=== PATIENT | female | born 1975 | race Asian ===

== ENCOUNTER 2016-10-14 02:19 | Emergency (ER) | payer OTHER ==
[2016-10-14 03:33] LABS: Hematocrit 38 % (35-47); Hemoglobin 12.8 g/dl (12.0-16.0); Mean Corpuscular HGB Conc 33 g/dl (31-36); Mean Corpuscular Hemoglobin 29 pg (27-31); Mean Corpuscular Volume 87 fL (80-97); Mean Platelet Volume 9 um3 (7.4-10.4); Red Blood Count 4.44 10^6/ul (4.0-5.4); Red Cell Distribution Width 13 % (10.5-15); White Blood Count 7.2 10^3/ul (3.5-10.8)
[2016-10-14] MEDS ORDERED: Ketorolac INJ* 30 MG/ML 1 ML VIAL IV PUSH ONE (04:36)
[2016-10-14] MEDS ORDERED: NS 0.9% 1000 ML* 1,000 ML IV SCH (04:45)
[2016-10-14 07:20] VITALS: BP 97/62
--- NOTE | 2016-10-14 08:11 | ED ---
Ruperto Mar Billy scribed for Linwood Francois MD on 10/14/16 at 0433 . GI/ HPI - HPI Summary HPI Summary: Patient is a 41 year-old female coming to [facility] for evaluation of abdominal pain and vaginal bleeding. Patient went to bed last night and woke up at midnight with heavy vaginal bleeding and intermittent suprapubic cramping. Pain severity 5/10. She has bled through 1 pad since midnight. Patient had a miscarriage 2 days ago; she was 10 weeks . She is scheduled to have D&C in 3 days. - History of Current Complaint Chief Complaint: EDVaginalBleeding Time Seen by Provider: 10/14/16 03:14 Stated Complaint: VAG BLEEDING Hx Obtained From: Patient Onset/Duration: Started Hours Ago Timing: Intermittent Severity: Moderate Current Severity: Moderate Number of Pads per Day: 1 - 1 pad since midnight Pain Intensity: 5 Location of Pain: Suprapubic Additional Signs & Symptoms: Positive: Vaginal Bleeding Aggravating Factor(s): Nothing Alleviating Factor(s): Nothing - Allergy/Home Medications Allergies/Adverse Reactions: Allergies Allergy/AdvReac Type Severity Reaction Status Date / Time No Known Allergies Allergy Verified 10/14/16 02:24 PMH/Surg Hx/FS Hx/Imm Hx Endocrine/Hematology History: Denies: Hx Diabetes Cardiovascular History: Denies: Hx Hypertension Sensory History: Reports: Hx Contacts or Glasses - contacts, will wear glasses day of surgery Denies: Hx Hearing Aid Opthamlomology History: Reports: Hx Contacts or Glasses - contacts, will wear glasses day of surgery - Surgical History Surgery Procedure, Year, and Place: OVARIAN CYST REMOVAL Hx Anesthesia Reactions: No Infectious Disease History: No Infectious Disease History: Denies: Traveled Outside the [place] in Last 30 Days - Family History Family History: No family history of malignant hyperthermia or anesthesia reaction. - Social History Alcohol Use: Occasionally Substance Use Type: Reports: None Smoking Status (MU): Never Smoked Tobacco Have You Smoked in the Last Year: No Review of Systems Negative: Fever, Chills Negative: Erythema Negative: Sore Throat Negative: Chest Pain Negative: Shortness Of Breath, Cough Positive: Abdominal Pain. Negative: Vomiting, Nausea Positive: other - bleeding Negative: Myalgia, Edema Negative: Rash All Other Systems Reviewed And Are Negative: Yes Physical Exam - Summary Physical Exam Summary: Constitutional: Well-developed, Well-nourished, Alert. (-) Distressed Skin: Warm, Dry HENT: Normocephalic; Atraumatic Eyes: Conjunctiva normal Neck: Musculoskeletal ROM normal neck. (-) JVD, (-) Stridor, (-) Tracheal deviation Cardio: Rhythm regular, rate normal, Heart sounds normal; Intact distal pulses; The pedal pulses are 2+ and symmetric. Radial pulses are 2+ and symmetric. (-) Murmur Pulmonary/Chest wall: Effort normal. (-) Respiratory distress, (-) Wheezes, (-) Rales Abd: Soft, Mild suprapubic tendernes. (-) Distension, (-) Guarding, (-) Rebound. There is a small amount of blood visualized on the second pad. Musculoskeletal: (-) Edema Lymph: (-) Cervical adenopathy Neuro: Alert, Oriented x3 Psych: Mood and affect Normal Triage Information Reviewed: Yes Vital Signs On Initial Exam: Initial Vitals Temp Pulse Resp BP Pulse Ox 97.7 F 77 15 110/70 100 10/14/16 02:21 10/14/16 02:21 10/14/16 02:21 10/14/16 02:21 10/14/16 02:21 Vital Signs Reviewed: Yes Diagnostics - Vital Signs Vital Signs Temp Pulse Resp BP Pulse Ox 10/14/16 04:00 56 103/71 99 10/14/16 03:30 60 108/62 99 10/14/16 03:06 57 100 10/14/16 03:04 99/63 10/14/16 02:23 97.7 F 73 15 110/70 100 10/14/16 02:21 97.7 F 77 15 110/70 100 - Laboratory Lab Results: Lab Results 10/14/16 10/14/16 Range/Units 03:05 03:05 WBC 7.2 (3.5-10.8) 10^3/ul RBC 4.44 (4.0-5.4) 10^6/ul Hgb 12.8 (12.0-16.0) g/dl Hct 38 (35-47) % MCV 87 (80-97) fL MCH 29 (27-31) pg MCHC 33 (31-36) g/dl RDW 13 (10.5-15) % Plt Count 148 L (150-450) 10^3/ul MPV 9 (7.4-10.4) um3 Blood Type B Positive Antibody Screen Negative Result Diagrams: 10/14/16 03:05 Lab Statement: Any lab studies that have been ordered have been reviewed, and results considered in the medical decision making process. Re-Evaluation - Re-Evaluation First Eval Re-Evaluation Time: 08:10 Change: Improved - FEELS BETTER, HAS OB APPT AT 9 AM TODAY GIGU Course/Dx - Course Assessment/Plan: 41 y/o female to the ED for evaluation of vaginal bleeding. Hgb and Hct WNL. There was minimal bleeding and passage of tissue in the ED. Patient was given Toradol and IV fluids in the ED. She will be discharged home to follow up with PCP. - Diagnoses Provider Diagnoses: Miscarriage - Physician Notifications Discussed Care Of Patient With: Dr. Menjivar ([facility]) @ [phone]: wants the patient to call her OB in the morning after the office opens. Discharge - Discharge Plan Condition: Stable Disposition: HOME Patient Education Materials: Miscarriage (ED) Referrals: Helena Randhawa MD [Primary Care Provider] - (GO TO YOUR OBGYN APPT TODAY AT 9 AM) Additional Instructions: FOLLOW UP WITH [facility] ON WEDNESDAY. The documentation as recorded by the Ruperto carlson Billy accurately reflects the service I personally performed and the decisions made by me, Linwood Francois MD.
[2016-10-14] MEDS ORDERED: Ibuprofen TAB* 400 MG PO ONE (08:12)
== END 2016-10-14 08:23 | disposition home or self-care (01) ==
LOC: ED 02:19
DX: O03.9 Complete or unspecified spontaneous abortion without complication (principal); R10.9 Unspecified abdominal pain; N93.9 Abnormal uterine and vaginal bleeding, unspecified
CPT/HCPCS: 36415; 85027; 86850; 86900; 86901; 88305; 96374; 99284; A9270-GY; J1885

== ENCOUNTER → 2016-10-14 13:25 | Day surgery (SDC) | payer OTHER ==
[~2016-10-14 13:25] MED LIST: Acetaminophen TAB* 325 MG PO PRN; DOXYcycline IV* 100 MG in NS 0.9% 250 ML* 250 ML IVPB ONE; HYDROmorphone* 1 MG/ML 1 ML SYR IV PRN; Ketorolac INJ* 30 MG/ML 1 ML VIAL IV PRN; Ketorolac INJ* 30 MG/ML 1 ML VIAL ONE; Lidocaine 1% INJ* 10 MG/ML 30 ML SDV ONE; Lidocaine 2% PF* 5 ML VIAL ONE; Metoclopramide IV* 5 MG/ML 2 ML VIAL IV PRN; Midazolam* 1 MG/ML 5 ML VIAL (5 MG) ONE; Ondansetron INJ* 2 MG/ML VIAL ONE; PROCHLORPERAZINE INJ 5 MG/ML 2 ML VIAL IV PRN; Propofol* 10 MG/ML 20 ML BTL IV PUSH ONE; Scopolamine 1.5 mg* PATCH TRANSDERM PRN; fentaNYL* 50 MCG/ML 2 ML VIAL (100 MCG VIAL) ONE
[2016-10-14 17:42] VITALS: BP 103/67
--- NOTE | 2016-10-15 13:50 | OP ---
DATE OF OPERATION: 10/14/16 [facility] DATE OF : 79 SURGEON: Asiya Dallas MD ANESTHESIOLOGIST: Dr. Lemos. ANESTHESIA: Local and MAC. PRE-OP DIAGNOSIS: Incomplete with recurrent miscarriage. POST-OP DIAGNOSIS: Incomplete with recurrent miscarriage. OPERATIVE PROCEDURE: Suction dilation and curettage. INDICATIONS: This patient is a 41-year-old 5, para 1, who had a normal full-term a few years ago but since then has now had 4 miscarriages. The patient had originally been scheduled for a suction D and C later this week when missed was diagnosed last week. However, she presented early this morning to the emergency department with fairly persistent cramping and bleeding and desired to proceed with the D and C sooner. She was added onto the schedule. She was extensively counseled and consent was signed. ESTIMATED BLOOD LOSS: 50 cc. URINE OUTPUT: 75 cc. IV FLUIDS: 900 cc lactated Ringer's. MATERIALS TO LAB: Products of conception sent for pathology and genetic analysis. FINDINGS: Appropriate amount of fluid and tissue within the uterus. Uterus sounded to about 12 cm. COMPLICATIONS: None. DESCRIPTION OF PROCEDURE: The risks, benefits, and alternatives were described to the patient and informed consent was obtained. The patient was taken to the operating room with IV running where heavy sedation was performed. The patient was prepped and draped in the normal sterile fashion in the high lithotomy position in Vazquez stirrups. A time-out was performed. When it was clear that the patient was well sedated, the bladder was then emptied. A bivalved speculum was placed in the vagina and a single-tooth tenaculum was placed on the anterior cervix. The uterus sounded to about 12 cm and was retroverted. The cervix was then gently dilated using Hanks and then small Hegar dilators to a size 9. A size 8 curved suction curette was then advanced through the cervix into the uterine cavity without difficulty. Suction was activated and a moderate amount of tissue blood and fluid were obtained. After 3 passes with the suction curette, there did not appear to be any additional tissue. A gentle sharp curettage was then performed using a medium banjo curette taking care not to injure the endometrium. There was good cry noted in all 4 quadrants and there was no remaining tissue palpable. At that time, bleeding was minimal. The tenaculum was then removed from the cervix and there was good hemostasis present. Of note, a paracervical block was performed with 1% lidocaine on both sides prior to dilation. The speculum was then removed and the patient was returned to the supine position. The patient tolerated the procedure well. Sponge, lap, and needle counts were correct x2. [id number]/[facility] #: [id number] MTDD
== END | disposition home or self-care (01) ==
LOC: OR 13:25
PROVIDERS: ATTEND Obstetrics & Gynecology
DX: O02.1 Missed abortion (principal)
CPT/HCPCS: 81229; 88305; J1885; J2001; J2250; J2405; J2704; J3010